=== PATIENT | female | born 1955 | race American Indian/Alaskan Native ===

== ENCOUNTER 2016-06-11 08:57 | Emergency (ER) | payer OTHER ==
[~2016-06-11] VITALS: Ht 170.2 cm; Wt 68.9 kg
[~2016-06-11 08:57] MED LIST: DOXYCYCLINE HY100 M2; OMEPRAZOLE40 M1 PO; PROAIR HFA8.5 GM INH; SYNTHROID125 MCG PO; VICKS NYQUIL C354 M1 PO; VITAMIN D250000 UNIT PO; [UNRECOGNIZED DRUG - OTHER] PO
[2016-06-11 09:37] LABS: ABSOLUTE BASOPHIL COUNT 0 /CUMM (0.0-0.2); ABSOLUTE EOSINOPHIL COUNT 0.1 /CUMM (0.0-0.7); ABSOLUTE GRANULOCYTE CT 2.7 /CUMM (1.4-6.5); ABSOLUTE LYMPH COUNT 1.9 /CUMM (1.2-3.4); ABSOLUTE MONOCYTE COUNT 0.3 /CUMM (0.10-0.60); BASOPHIL % 0.3 % (0.0-2.0); EOSINOPHIL % 1.5 % (0-5); GRANULOCYTE % 54.4 % (42.2-75.2); HEMATOCRIT 42.5 % (37-47); MEAN CORPUSCULAR HGB 31.6 PG (27.0-31.0); MEAN CORPUSCULAR HGB CONC 34.4 G/DL (33.0-37.0); MEAN CORPUSCULAR VOLUME 91.9 FL (81.0-99.0); MEAN PLATELET VOLUME 9.5 FL (7.4-10.4); PLATELET COUNT 202 /CUMM (130-400); RED BLOOD CELL CT 4.63 /CUMM (4.20-5.40)
--- NOTE | 2016-06-11 10:28 | ED GI/GU/ABDOMINAL COMPLAINT ---
History of Present Illness General Chief Complaint: Abdominal Pain/Flank Pain Stated Complaint: ABD PAIN Source: patient Exam Limitations: no limitations Vital Signs & Intake/Output Vital Signs & Intake/Output Vital Signs Date Time Temp Pulse Resp B/P B/P Pulse O2 O2 Flow FiO2 Mean Ox Delivery Rate 06/11 1551 Room Air 06/11 1453 98.0 68 18 124/69 98 Room Air 06/11 1237 97.3 65 18 117/64 97 Room Air 06/11 1048 97.8 60 18 122/71 100 Room Air 06/11 0901 97.8 66 16 144/87 95 Room Air Allergies Coded Allergies: Iodinated Contrast Media - Oral and (IODINATED CONTRAST MEDIA - IV DYE) (RASH, TONGUE TINGLES - PER PT IS OK WITH BENADRYL FIRST 09/26/15) doxycycline (VERY ITCHY 09/26/15) Reconcile Medications Ergocalciferol (Vitamin D2) (Vitamin D2) 50,000 UNIT CAPSULE 1 CAP PO QSUN SUPPLEMENT (Reported) Levothyroxine Sodium (Synthroid) 125 MCG TABLET 1 TAB PO QPM THYROID ( Reported) Triage Note: PT STATES SHE HAS HAD ABD PAIN ON AND OFF SINCE FRIDAY BUT LAST NIGHT HER PAIN GOT WORSE. PT C/O LOWER BACK PAIN THAT STARTED YESTERDAY. Triage Nurses Notes Reviewed? yes ? n Is pt currently ? No HPI: Patient presents for evaluation of a severe left lower quadrant abdominal pain and low back pain that began gradually last night. Past History Travel History Traveled to [place] past 21 day No Medical History Any Pertinent Medical History? 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 No Review of Systems Review of Systems Constitutional: Reports: no symptoms. EENTM: Reports: no symptoms. Respiratory: Reports: no symptoms. Cardiovascular: Reports: no symptoms. GI: Reports: see HPI. Genitourinary: Reports: no symptoms. Musculoskeletal: Reports: no symptoms. Skin: Reports: no symptoms. Neurological/Psychological: Reports: no symptoms. Hematologic/Endocrine: Reports: no symptoms. Immunologic/Allergic: Reports: no symptoms. All Other Systems: Reviewed and Negative Physical Exam Physical Exam Gastrointestinal: see below Comments: Gen.: Well-nourished, well-developed, no acute respiratory distress. Mild to moderate discomfort. Head: Normocephalic, atraumatic. Eyes: Normal inspection bilaterally Ears: Normal inspection bilaterally Nose: Normal inspection Throat/mouth : Moist mucosa Neck: Supple, full range of motion, no goiter Heart: Regular rate and rhythm, no murmurs rubs or gallops Lungs: Clear to auscultation bilaterally with normal air entry Chest: Nontender Back: Normal range of motion, no CVAT to percussion, tenderness over the left sacroiliac region that does not reproduce the pain of the chief complaint Abdomen: Soft, epigastric tenderness with brief voluntary guarding but no rebound, nondistended, normal bowel sounds Extremities: Normal range of motion grossly, equal radial pulses, no cyanosis clubbing or edema Neurologic: Cranial nerves grossly intact, speech is clear Skin: warm and dry Psychiatric: Calm, cooperative, no apparent delusions or hallucinations Core Measures ACS in differential dx? No Severe Sepsis Present: No Septic Shock Present: No Progress Differential Diagnosis: diverticulitis, inflamm bowel dis, kidney stone Plan of Care: Orders Procedure Date/time Status US-TRANSVAGINAL 06/11 1027 Active URINALYSIS 06/11 09 Complete LIPASE 06/11 0906 Complete COMPREHENSIVE METABOLIC PANEL 06/11 09 Complete CBC WITHOUT DIFFERENTIAL 06/11 09 Complete AMYLASE 06/11 0906 Complete Laboratory Tests 06/11/16 0920: Urinalysis LIGHT H, Urine Color YEL, Urine Clarity CLEAR, Urine pH 7.5, Ur Specific [place] 1.010, Urine Protein NEG, Urine Ketones NEG, Urine Nitrite NEG, Urine Bilirubin NEG, Urine Urobilinogen 0.2, Ur Leukocyte Esterase MOD H, Ur Microscopic SEDIMENT EXAMINED, Urine RBC RARE, Urine WBC 5-10 H, Ur Epithelial Cells FEW, Urine Bacteria RARE H, Urine Hemoglobin NEG, Urine Glucose NEG 06/11/16 0917: Anion Gap 9, Estimated GFR > 60, BUN/Creatinine Ratio 17.1, Glucose 85, Calcium 9.8, Total Bilirubin 0.6, AST 22, ALT 30, Alkaline Phosphatase 72, Total Protein 7.4, Albumin 4.4, Globulin 3.0, Albumin/Globulin Ratio 1.5, Amylase 77, Lipase 82, CBC w Diff NO MAN DIFF REQ, RBC 4.63, MCV 91.9, MCH 31.6 H, RDW 13.0, MPV 9.5, Gran % 54.4, Lymphocytes % 37.4, Monocytes % 6.4, Eosinophils % 1.5, Basophils % 0.3, Absolute Granulocytes 2.7, Absolute Lymphocytes 1.9, Absolute Monocytes 0.3, Absolute Eosinophils 0.1, Absolute Basophils 0, PUBS MCHC 34.4 Diagnostic Imaging: Discussed w/RAD: CT Scan, Ultrasound. Radiology Impression: PATIENT: CESAR ESTEVEZ PRESENT AGE: 61 PATIENT ACCOUNT NO: [id number] : 53 LOCATION: [facility] ORDERING PHYSICIAN: CUBA LÓPEZ MD SERVICE DATE: 06/11/16 EXAM TYPE: CAT - CT ABD & PELVIS W/O IV CONTRAS EXAMINATION: CT ABDOMEN AND PELVIS WITHOUT CONTRAST CLINICAL INFORMATION: Left lower quadrant and back pain. Renal colic. COMPARISON : None TECHNIQUE: Multidetector volumetric imaging was performed from the superior aspect of the liver through the pubic symphysis. Sagittal and coronal reformatted images were obtained on the technologist's workstation. DLP: 286 mGy -cm FINDINGS: LUNG BASES: Mild dependent atelectasis. LIVER, GALLBLADDER, AND BILIARY TREE: The liver is normal in size, shape, and attenuation. No focal hepatic lesion or biliary ductal dilatation is present. The gallbladder is unremarkable with no evidence of radiopaque gallstones, gallbladder wall thickening, or obvious pericholecystic inflammatory changes. PANCREAS: Unremarkable. SPLEEN: Unremarkable. ADRENAL GLANDS: Unremarkable. KIDNEYS AND URETERS: The kidneys are normal in size, shape, and attenuation. No hydronephrosis, hydroureter, or calculi seen. No perinephric stranding. BLADDER: Unremarkable. GASTROINTESTINAL TRACT: There is a duodenal diverticulum. In the left mid abdomen, there are loops of abnormal appearing jejunum with extensive fecalization. There are decreased loops of bowel distally. There are scattered mildly prominent lymph nodes surrounding the abnormal bowel loops with subtle, mild stranding. The colon is unremarkable. ABDOMINAL WALL: No significant hernia is appreciated. LYMPH NODES: Mildly prominent lymph nodes left abdomen and periaortic, but no bulky adenopathy. VASCULAR: Unremarkable. PELVIC VISCERA: Unremarkable. OSSEOUS STRUCTURES: Unremarkable. IMPRESSION: 1. No renal calculi. 2. Abnormal loops of jejunum in the left mid abdomen with extensive fecalization and mild inflammatory changes. The fecalization is most likely due to slow transit given the bowel loops are not significantly dilated and there is no clear transition point. However, early small bowel obstruction cannot be excluded. Inflammatory processes such as IBD and celiac disease should be considered. DICTATED BY: IRIS SAL MD DATE/TIME DICTATED:06/11/161241 BOTTOM WHEELER:DAQUAN DATE/TIME TRANSCRIBED:06/11/161241 CONFIDENTIAL, DO NOT COPY WITHOUT APPROPRIATE AUTHORIZATION. <Electronically signed in Other Vendor System> SIGNED BY: IRIS SAL MD 06/11/16 4896 Initial ED EKG: none Comments: 06/11/2016 2:30:35 PM I have updated Cesar on her test results. Although she is still having a fair amount of discomfort she has repeatedly declined narcotic pain relievers. She is willing to try Levsin. 06/11/2016 3:46:36 PM I have obtained a fax of the ultrasound report and the impression is as follows: #1 no evidence of ovarian torsion. #2 ovaries bilaterally are atrophic. There is a benign appearing cyst at the right ovary. #3 uterus and endometrial canal normal. Dictated by Migdalia Jauregui MD. I have updated Cesar on this result. She feels comfortable returning home and has had improvement in her symptoms with the Levsin. Departure Departure Disposition: HOME OR SELF CARE Condition: Stable Clinical Impression Primary Impression: Nonspecific abdominal pain Referrals: LASHELL MEYERS,LAXMI Sanderson (PCP/Family) Additional Instructions: Colitis diet as discussed. Please follow-up with your GI specialist for further evaluation of the inflammatory changes seen on your CAT scan. Please notify your primary care physician of this emergency department visit and treatment plan. Zofran as needed for nausea or vomiting, hydrocodone and acetaminophen as needed for pain. Return if any concerns or sudden worsening. Please note that there might be incidental findings in your evaluation that are unrelated to the current emergency department visit. Please notify your primary care doctor about this emergency department visit in order to obtain and review all of the testing performed so that these incidental findings can be monitored as needed. If you had an x-ray performed, please understand that some fractures may not be seen on the initial set of x-rays. If your symptoms persist you might need a repeat set of x-rays to check for such a fracture. If you had a laceration evaluated, please understand that foreign bodies such as glass or wood may not be visible to the naked eye or on plain x-rays. If the wound becomes red, swollen, increasingly more painful or if there is any drainage from the wound, please have it reevaluated by a physician for the possibility of a retained foreign body. Thank you for choosing the [facility] for your care. It was a pleasure to serve you today. Cuba López M.D. [facility] Thank you for choosing the [facility] for your care. It was a pleasure to serve you today. Cuba López M.D. [facility] Departure Forms: Customer Survey General Discharge Information Prescriptions: Current Visit Scripts Hydrocodone/Acetaminophen (Hydrocodon-Acetaminophen 5-325) 1-2 TAB PO Q4-6 PRN PRN abdominal pain #12 TAB Hyoscyamine (Levsin) 1-2 TAB PO Q6P PRN ABDOMINAL CRAMPS #20 TAB
--- NOTE | 2016-06-11 13:08 | CT SCAN REPORT ---
EXAMINATION: CT ABDOMEN AND PELVIS WITHOUT CONTRAST CLINICAL INFORMATION: Left lower quadrant and back pain. Renal colic. COMPARISON: None TECHNIQUE: Multidetector volumetric imaging was performed from the superior aspect of the liver through the pubic symphysis. Sagittal and coronal reformatted images were obtained on the technologist's workstation. DLP: 286 mGy-cm FINDINGS: LUNG BASES: Mild dependent atelectasis. LIVER, GALLBLADDER, AND BILIARY TREE: The liver is normal in size, shape, and attenuation. No focal hepatic lesion or biliary ductal dilatation is present. The gallbladder is unremarkable with no evidence of radiopaque gallstones, gallbladder wall thickening, or obvious pericholecystic inflammatory changes. PANCREAS: Unremarkable. SPLEEN: Unremarkable. ADRENAL GLANDS: Unremarkable. KIDNEYS AND URETERS: The kidneys are normal in size, shape, and attenuation. No hydronephrosis, hydroureter, or calculi seen. No perinephric stranding. BLADDER: Unremarkable. GASTROINTESTINAL TRACT: There is a duodenal diverticulum. In the left mid abdomen, there are loops of abnormal appearing jejunum with extensive fecalization. There are decreased loops of bowel distally. There are scattered mildly prominent lymph nodes surrounding the abnormal bowel loops with subtle, mild stranding. The colon is unremarkable. ABDOMINAL WALL: No significant hernia is appreciated. LYMPH NODES: Mildly prominent lymph nodes left abdomen and periaortic, but no bulky adenopathy. VASCULAR: Unremarkable. PELVIC VISCERA: Unremarkable. OSSEOUS STRUCTURES: Unremarkable. IMPRESSION: 1. No renal calculi. 2. Abnormal loops of jejunum in the left mid abdomen with extensive fecalization and mild inflammatory changes. The fecalization is most likely due to slow transit given the bowel loops are not significantly dilated and there is no clear transition point. However, early small bowel obstruction cannot be excluded. Inflammatory processes such as IBD and celiac disease should be considered.
[2016-06-11 14:53] VITALS: BP 124/69
[2016-06-11] MEDS ORDERED: HYDROCODON-ACE1 EAC2 PO (15:54)
[2016-06-11] MEDS ORDERED: LEVSIN0.125 M1 PO (15:54)
--- NOTE | 2016-06-12 09:29 | ULTRASOUND REPORT ---
EXAMINATION: ULTRASOUND OF THE PELVIS CLINICAL INFORMATION: Left lower quadrant pain. Presumptive diagnosis of left ovarian torsion. COMPARISON: None TECHNIQUE: Transabdominal and transvaginal pelvic ultrasound. A transvaginal study was performed in addition to the transabdominal study which did not yield an adequate examination of the uterus and ovaries due to superimposed distended gas-filled loops of bowel. FINDINGS: Uterus: The uterus is anteverted and normal in size and appearance, measuring 6.7 x 2.5 x 4.2 cm. The endometrial stripe thickness is normal, measuring 0.2 cm in thickness. No focal myometrial mass is seen. The cervical length is normal measuring 2.9 cm. Small nabothian cyst is seen in the cervix. Ovaries: The ovaries bilaterally are visualized and appear atrophic, with the right ovary measuring 1.7 x 1.3 x 1.5 cm and the left ovary measuring 1.3 x 0.9 x 0.8 cm. There is a elongated 1.2 x 0.5 x 0.6 cm thin-walled cyst within the right ovary. No suspicious adnexal mass. With color Doppler imaging, bilaterally, normal arterial and venous flow is demonstrated. Other: No adnexal mass or free fluid collection seen. IMPRESSION: 1. No evidence of ovarian torsion. 2. Ovaries bilaterally are atrophic. There is a benign-appearing cyst in the right ovary. 3. Uterus and endometrium normal.
== END 2016-06-11 16:01 ==
LOC: ERH 08:57
PROVIDERS: Physician Assistant Medical
DX: R10.32 Left lower quadrant pain (principal)
CPT/HCPCS: 74176; 81001; 96374; 96375; J0131; J1885

== ENCOUNTER 2017-08-14 21:19 | Emergency (ER) | payer OTHER ==
[~2017-08-14] VITALS: Ht 170.1 cm; Wt 67.1 kg
[~2017-08-14 21:19] MED LIST changes: +HYDROCODON-ACE1 EAC2 PO; +LEVSIN0.125 M1 PO
--- NOTE | 2017-08-14 23:54 | ED MVC/FALL/TRAUMA COMPLAINT ---
History of Present Illness General Chief Complaint: Headache Stated Complaint: HEAD PAIN FROM FALL 1 WEEK AGO Source: patient Exam Limitations: no limitations Vital Signs & Intake/Output Vital Signs & Intake/Output Vital Signs Date Time Temp Pulse Resp B/P B/P Pulse O2 O2 Flow FiO2 Mean Ox Delivery Rate 08/144 98.1 78 20 133/91 98 Room Air ED Intake and Output 08/15 0000 08/14 1200 Intake Total Output Total Balance Patient 148 lb Weight Weight Reported by Patient Measurement Method Allergies Coded Allergies: Iodinated Contrast- Oral and IV Dye (IODINATED CONTRAST MEDIA - IV DYE) (RASH, TONGUE TINGLES - PER PT IS OK WITH BENADRYL FIRST 09/26/15) doxycycline (VERY ITCHY 09/26/15) Reconcile Medications Cyclobenzaprine HCl 10 MG TABLET 1 TAB PO QPM PRN MUSCLE RELAXOR Ergocalciferol (Vitamin D2) (Vitamin D2) 50,000 UNIT CAPSULE 1 CAP PO QSUN SUPPLEMENT (Reported) Hydrocodone/Acetaminophen (Hydrocodon-Acetaminophen 5-325) 5 MG-325 MG TABLET 1-2 TAB PO Q4-6 PRN PRN abdominal pain Hyoscyamine (Levsin) 0.125 MG TABLET 1-2 TAB PO Q6P PRN ABDOMINAL CRAMPS Levothyroxine Sodium (Synthroid) 125 MCG TABLET 1 TAB PO QPM THYROID ( Reported) Triage Note: PT HERE WITH C/O FALLING APPROX A WEEK AGO WITH HEADSTRIKE, DENIES LOC. PT REPORTS SHE HIT HER ROGHT KNEE. PT REPORTS THAT SHE HAD A CT SCAN DONE AT [facility] THAT WAS NEGATIVE BUT NO XRAY TO KNEE. PT REPORTS HAVING HEAD PRESSURE AND HEADACHE AND NOW HAVING PAIN ON RIGHT KNEE AND NUMBNESS BEHIND IT. Triage Nurses Notes Reviewed? yes Onset: Gradual Duration: waxing and waning Timing: recent history Severity: moderate Severity Numbers: 5 HPI: Patient is a 62-year-old female who presents emergency room with concerns of a days ago while ambulating in a bathroom she did not see the step when patient fell forward striking the right anterior aspect of her forehead to the floor complained of mild right elbow pain and skin abrasion patient was seen at a local emergency room in [facility] received CT scan of the head with no concerns of ICH or fracture patient still complaining of persistent neck pain and intermittent headaches and photophobia dizziness Patient presents emergency room with concerns of a gradual onset today of right knee pain and paresthesia behind her knee denies any back pain denies any saddle paresthesia or bowel bladder incontinence. Patient can tolerate by mouth patient took Fioricet prior to arrival. (Bala Kate) Past History Travel History Traveled to [place] past 21 day No Medical History Any Pertinent Medical History? 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 No (Bala Kate) Review of Systems Review of Systems Constitutional: Reports: no symptoms. Eyes: Reports: no symptoms. Ears, Nose, Throat, Mouth: Reports: no symptoms. Respiratory: Reports: no symptoms. Cardiovascular: Reports: no symptoms. Gastrointestinal/Abdominal: Reports: no symptoms. Genitourinary: Reports: no symptoms. Musculoskeletal: Reports: see HPI. Skin: Reports: no symptoms. Neurological/Psychological: Reports: see HPI, headache. All Other Systems: Reviewed and Negative (Bala Kate) Physical Exam Physical Exam General Appearance: no apparent distress, alert, comfortable Head: evidence of injury Eyes: Bilateral: normal appearance, PERRL, EOMI. Ears, Nose, Throat, Mouth: hearing grossly normal, moist mucous membrane Neck: normal inspection, GENERALIZED POINT TENDERNESS NOTED Respiratory: normal breath sounds, chest non-tender, no respiratory distress Cardiovascular: regular rate/rhythm Peripheral Pulses: 2+ radial (R) Gastrointestinal: normal bowel sounds, soft, non-tender Extremities: normal range of motion Neurologic/Psych: no motor/sensory deficits, awake, alert, oriented x 3, normal gait Skin: intact Comments: Right knee normal inspection nontender full active range of motion Bilateral lower extremity myotomes dermatomes DTRs intact Cranial nerves II through XII intact Diagram Head: 1) Noted point tenderness and ecchymosis Core Measures ACS in differential dx? No CVA/TIA Diagnosis No Sepsis Present: No Sepsis Focused Exam Completed? No (Bala Kate) Progress Differential Diagnosis: abd injury, C/T/L spine injury, ext injury, ICH, pelvis injury, pnemothorax, spinal cord injury Plan of Care: Orders Procedure Date/time Status CT HEAD WO IV CONTRAST 08/[address] CERV SPINE WO IV CONTRAST 08/15 40 Active Patient upon initial examination shows no concerns of cauda equina syndrome had normal steady gait patient was discussed with risks and benefits of repeat CT scan patient has central spinous tenderness to the cervical region no central spinous tenderness on lumbar spine. Patient was neurovascularly intact to extremities She agrees to receive repeat CT scan of head and cervical spine Discussed handoff WITH DR GOLDSTEIN Hand-Off Endorsed To: Tra Goldstein MD Endorsed Time: 52 Pending: CT Comments: PATIENT: CESAR ESTEVEZ PRESENT AGE: 62 PATIENT ACCOUNT NO: [id number] : 53 LOCATION: [facility] ORDERING PHYSICIAN: Bala TAVAREZ SERVICE DATE: 08/14/17 EXAM TYPE: RAD - XRY-KNEE COMPLETE RIGHT EXAMINATION: RIGHT KNEE 3 VIEWS CLINICAL INFORMATION: Right knee pain. COMPARISON: None. TECHNIQUE: AP, lateral, oblique views of the right knee were obtained. FINDINGS: There are no fractures or dislocations. There is no knee joint effusion. There is no significant soft tissue swelling. IMPRESSION: Unremarkable right knee radiographs. DICTATED BY: Josue Ingram MD DATE/TIME DICTATED:08/15/1722 GARBAGE TRUCK HELPER:DAQUAN DATE/TIME TRANSCRIBED:08/15/1722 (Diony TAVAREZ,Bala) Diagnostic Imaging: Viewed by Me: CT Scan. Discussed w/RAD: CT Scan. Radiology Impression: No evidence for acute intracranial injury. No evidence for acute injury to the cervical spine. Mild degenerative change within the lower cervical spine. (Tra Goldstein MD) Departure Departure Disposition: HOME OR SELF CARE Condition: Stable Clinical Impression Primary Impression: Postconcussional syndrome Secondary Impressions: Cervical strain, Right knee pain Referrals: Oneil MEYERS,Germania Sanderson (PCP/Family) Additional Instructions: As discussed begin icing the area directly begin [id number] ibuprofen begin the prescription of cyclobenzaprine for muscle relaxation continue home medications follow-up with your neurologist on Friday if no better if symptoms worsen return to emergency room. Prescriptions awaiting a your pharmacy Departure Forms: Customer Survey General Discharge Information Prescriptions: Current Visit Scripts Cyclobenzaprine HCl 1 TAB PO QPM PRN MUSCLE RELAXOR #7 TAB (Bala Kate) Departure Time of Disposition: 0126 PA/MEMORANDUM STATEMENT CLERK Co-Sign Statement Statement: ED Attending supervision documentation- x I saw and evaluated the patient. I have also reviewed all the pertinent lab results and diagnostic results. I agree with the findings and the plan of care as documented in the PA's/MEMORANDUM STATEMENT CLERK's documentation. [] I have reviewed the ED Record and agree with the PA's/MEMORANDUM STATEMENT CLERK's documentation. [] Additions or exceptions (if any) to the PAs/MEMORANDUM STATEMENT CLERK's note and plan are summarized below: [] (Niru MEYERS,Tra)
--- NOTE | 2017-08-15 00:27 | RADIOLOGY REPORT ---
EXAMINATION: RIGHT KNEE 3 VIEWS CLINICAL INFORMATION: Right knee pain. COMPARISON: None. TECHNIQUE: AP, lateral, oblique views of the right knee were obtained. FINDINGS: There are no fractures or dislocations. There is no knee joint effusion. There is no significant soft tissue swelling. IMPRESSION: Unremarkable right knee radiographs.
[2017-08-15] MEDS ORDERED: CYCLOBENZAPRINE10 M1 PO (00:43)
--- NOTE | 2017-08-15 01:20 | CT SCAN REPORT ---
EXAMINATIONS: CT HEAD WITHOUT CONTRAST AND CT CERVICAL SPINE WITHOUT CONTRAST CLINICAL INFORMATION: Trauma to head. Concussion. Neck pain. COMPARISON: October 25, 2014. TECHNIQUE: Contiguous helical images of the brain were obtained without IV contrast. Contiguous helical images of the cervical spine were obtained without IV contrast. Multiplanar reconstructions were performed. DLP: 1010 mGy-cm. FINDINGS: There are no pathologic extra-axial fluid collections. The lateral, third, fourth ventricles are nondilated and concordant with the appearance of the sulci. There is no evidence for acute intraparenchymal hemorrhage or infarct. There is neither mass nor mass effect. There is no shift of midline structures. The paranasal sinuses and mastoid air cells are clear. There are no osseous lesions. The cervical vertebra are in normal alignment. There is disc height loss at C5/C6 Disc heights and vertebral heights are otherwise well-preserved. There are no fractures. There is no prevertebral soft tissue swelling. There is no cervical lymphadenopathy. The visualized lung apices are clear. IMPRESSION: No evidence for acute intracranial injury. No evidence for acute injury to the cervical spine. Mild degenerative change within the lower cervical spine.
[2017-08-15 01:30] VITALS: BP 128/85
== END 2017-08-15 01:31 ==
LOC: ERH 21:19
DX: F07.81 Postconcussional syndrome (principal); S16.1XXA Strain of muscle, fascia and tendon at neck level, initial encounter; M25.561 Pain in right knee; W01.0XXA Fall on same level from slipping, tripping and stumbling without subsequent striking against object, initial encounter
CPT/HCPCS: 73562-RT